=== PATIENT | female | born 1970 | race African-American/Black ===

== ENCOUNTER → 2018-03-31 | Outpatient (CLI) | payer OTHER | LOC: RAD 11:10 | DX: Z12.31 Encounter for screening mammogram for malignant neoplasm of breast (principal) ==

== ENCOUNTER → 2018-10-20 | Outpatient (CLI) | payer OTHER | LOC: CAT 13:17 → RAD 13:17 | DX: S52.572A Other intraarticular fracture of lower end of left radius, initial encounter for closed fracture (principal); S62.667A Nondisplaced fracture of distal phalanx of left little finger, initial encounter for closed fracture; R10.9 Unspecified abdominal pain; M25.572 Pain in left ankle and joints of left foot; V89.2XXA Person injured in unspecified motor-vehicle accident, traffic, initial encounter; Y93.89 Activity, other specified; Y92.89 Other specified places as the place of occurrence of the external cause; Y99.8 Other external cause status ==

== ENCOUNTER → 2018-11-12 | Outpatient (CLI) | payer OTHER | LOC: RAD 12:11 | DX: S52.592D Other fractures of lower end of left radius, subsequent encounter for closed fracture with routine healing (principal); M79.672 Pain in left foot; X58.XXXD Exposure to other specified factors, subsequent encounter ==

== ENCOUNTER → 2020-08-08 | Outpatient (CLI) | payer OTHER ==
[2020-08-08 12:25] LABS: ABSOLUTE NEUTROPHILS 1.3 thou/uL (1.4-8.2); BASOPHILS 0.6 % (0.0-2.0); EOSINOPHILS 2.3 % (0.0-3.0); LYMPHOCYTES 56.8 % (24.0-44.0); MCH 32.6 pg (26.0-34.0); MCHC 33.3 g/dL (28.0-37.0); MCV 97.6 fL (80.0-100.0); MONOCYTES 8.5 % (1.0-8.0); POLYS 31.8 % (36.0-66.0); RDW 13.3 % (10.5-14.5); WBC 4.1 thou/uL (4.0-11.0)
[2020-08-08 12:50] LABS: LARGE PLATELETS OCCASIONAL; PLATELET COUNT 227 thou/uL (150-400); PLATELET ESTIMATE NORMAL
[2020-08-08 12:51] LABS: ALBUMIN 4.2 g/dL (3.4-5.0); ANION GAP 7 mmol/L (7-16); BUN 11 mg/dL (7-18); CALCIUM 9.2 mg/dL (8.5-10.1); CHLORIDE 106 mmol/L (98-107); CHOLESTEROL 215 mg/dL (<200); CO2 30 mmol/L (21-32); CREATININE 0.7 mg/dL (0.6-1.0); GLUCOSE 98 mg/dL (74-106); HDL CHOLESTEROL 65 mg/dL (>40); LDL CHOLESTEROL 140 mg/dL (<100); SGOT 24 U/L (15-37); SGPT 35 U/L (30-65); SODIUM 143 mmol/L (136-145); TC:HDL 3.3 Ratio (Not establshd); TOTAL BILIRUBIN 0.5 mg/dL (0.2-1.0); TOTAL PROTEIN 7.1 g/dL (6.4-8.2); TRIGLYCERIDE 52 mg/dL (<150); VLDL 10 mg/dL (<40)
[2020-08-09 07:08] LABS: GLYCOHEMOGLOBIN (HGB A1C) 6.1 % (4.8-5.6)
[2020-08-15 17:57] LABS: CORTISOL RANDOM 6.6
== END ==
LOC: LAB 10:53
PROVIDERS: ATTEND Nurse Practitioner
DX: R19.09 Other intra-abdominal and pelvic swelling, mass and lump (principal)

== ENCOUNTER → 2020-09-01 | Outpatient (CLI) | payer OTHER ==
[~2020-09-01] MED LIST: MULTIVITAMINS PO
== END ==
LOC: LAB 11:43
PROVIDERS: ATTEND Internal Medicine Gastroenterology
DX: Z20.828 Contact with and (suspected) exposure to other viral communicable diseases (principal)

== ENCOUNTER → 2020-09-04 | Outpatient (CLI) | payer OTHER ==
[~2020-09-04] VITALS: Ht 160 cm; Wt 77.1 kg
--- NOTE | 2020-09-06 15:07 | PATH ---
[facility] [address] [place] [address] PATHOLOGY RPT PROCEDURE Name: IVONNE HERNANDEZ A Room #: [facility].#: [id number] Admission: 09/04/20 Date of : 68 Discharge: Report #: [id number] Path Case #: [id number] [facility] Accession Number: [id number] . 01 Material submitted: . cecum - CECAL POLYP . 01 Clinical history: . COLONPOLYP,HEMORRHOIDS . 02 Diagnosis: Polyp, cecal polyp, endoscopic biopsy: - Inflamed hyperplastic polyp with a crypt abscess. - Negative for dysplasia or malignancy. (IUV/db; 09/06/2020) LBQ 09/06/2020 1149 Local . 02 Electronically signed: . Tricia Desai MD, Pathologist NPI- [id number] . 01 Gross description: . The specimen is received in formalin, labeled "Ivonne Hernandez, BX of cecal polyp" and consists of a fragment of pink-denny tissue measuring 0.4 x 0.2 cm which is entirely submitted in A1. (SDY; 09/05/2020) SYU/SYU 09/05/2020 1600 Local . 02 Pathologist provided ICD-10: K63.5 . 02 CPT . 663375 Specimen Comment: A courtesy copy of this report has been sent to [phone] Specimen Comment: [id number] Specimen Comment: Report sent to / DR CORBIN Performed at: [address], [place] [id number] MD Uriel Grant MD Phone: [phone] Performed at: [address] [id number] MD Tricia Desai MD Phone: [phone]
== END | disposition home or self-care (01) ==
LOC: GI 07:10
PROVIDERS: ATTEND Internal Medicine Gastroenterology
DX: Z12.11 Encounter for screening for malignant neoplasm of colon (principal); K51.40 Inflammatory polyps of colon without complications; K64.8 Other hemorrhoids; Z98.890 Other specified postprocedural states; Z79.899 Other long term (current) drug therapy; Z87.891 Personal history of nicotine dependence
CPT/HCPCS: 62110; 62900

== ENCOUNTER → 2020-10-02 | Outpatient (CLI) | payer OTHER | LOC: BC 09-07 15:45 | PROVIDERS: ATTEND Nurse Practitioner | DX: Z12.31 Encounter for screening mammogram for malignant neoplasm of breast (principal) ==

== ENCOUNTER → 2020-10-03 | Outpatient (CLI) | payer OTHER | LOC: RAD 15:46 | PROVIDERS: ATTEND Family Medicine | DX: R76.11 Nonspecific reaction to tuberculin skin test without active tuberculosis (principal) ==